=== PATIENT | female | born 2000 | race American Indian/Alaskan Native ===

== ENCOUNTER 2020-10-13 07:46 | Emergency (ER) | payer OTHER, BC ==
[2020-10-13] MEDS ORDERED: IBUPROFEN 800 MG TAB PO ONE (10:26)
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
[2020-10-13 12:47] VITALS: BP 132/54
== END 2020-10-13 13:02 | disposition home or self-care (01) ==
LOC: ED 07:46
DX: S06.0X9A Concussion with loss of consciousness of unspecified duration, initial encounter (principal); S16.1XXA Strain of muscle, fascia and tendon at neck level, initial encounter; S39.012A Strain of muscle, fascia and tendon of lower back, initial encounter; F17.200 Nicotine dependence, unspecified, uncomplicated; F12.10 Cannabis abuse, uncomplicated; Z90.89 Acquired absence of other organs; Z88.8 Allergy status to other drugs, medicaments and biological substances; V89.2XXA Person injured in unspecified motor-vehicle accident, traffic, initial encounter; Y93.89 Activity, other specified; Y92.410 Unspecified street and highway as the place of occurrence of the external cause; Y99.8 Other external cause status
CPT/HCPCS: 70450; 72100; 72125

== ENCOUNTER 2021-04-07 08:13 | Emergency (ER) | payer BC ==
[2021-04-07 08:46] VITALS: BP 145/91
[2021-04-07] MEDS ORDERED: LORazepam 1 MG TAB PO ONE (11:23)
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
[2021-04-07 12:44] LABS: Hematocrit 41.3 % (30.3-42.9); Hemoglobin 14.2 gm/dl (10.1-14.3); Mean Corpuscular HGB Conc 34 % (30-34); Mean Corpuscular Volume 93 fl (79-97); Platelet Count 261 K/mm3 (140-440); Red Blood Count 4.42 M/mm3 (3.65-5.03); Red Cell Distribution Width 14.4 % (13.2-15.2)
[2021-04-07 12:49] LABS: Amphetamine Screen,Urine Negative; Benzodiazepines Screen,Urine Negative; Cannabinoid Screen,Urine Negative; Cocaine Screen,Urine Negative; Methadone Screen,Urine Negative; Opiate Screen,Urine Negative
[2021-04-07 13:17] LABS: Alanine Aminotransferase 45 units/L (7-56); Albumin 5.6 g/dL (3.9-5); Blood Urea Nitrogen 8 mg/dL (7-17); Hemolysis Index 8
[2021-04-07 13:20] LABS: BUN/Creatinine Ratio 11
[2021-04-07 13:28] LABS: Anisocytosis 1+; Giant Platelets Rare; Large Platelets Few; Platelet Estimate Consistent w Auto; Total Cells Counted 100
[2021-04-07 13:30] LABS: Erythrocyte Sedimentation Rate 1 mm/Hr (0-20)
--- NOTE | 2021-04-07 16:36 | Vascular Lab Report ---
DUPLEX DOPPLER LOWER EXTREMITY VEINS, BILATERAL INDICATION / CLINICAL INFORMATION: Calf pain TECHNIQUE: Duplex doppler imaging was performed through the veins of both lower extremities using ranjeet ous compression and other maneuvers. COMPARISON: None available. FINDINGS: RIGHT COMMON FEMORAL VEIN: Negative. RIGHT FEMORAL VEIN: Negative. RIGHT POPLITEAL VEIN: Negative. RIGHT CALF VEINS: Negative. LEFT COMMON FEMORAL VEIN: Negative. LEFT FEMORAL VEIN: Negative. LEFT POPLITEAL VEIN: Negative. LEFT CALF VEINS: Negative. ADDITIONAL FINDINGS: None. IMPRESSION: No sonographic evidence for DVT in either lower extremity. Signer Name: Andrés Trent MD Signed: 04/07/2021 4:32 PM Workstation Name: [id number]
== END 2021-04-07 14:21 | disposition home or self-care (01) ==
LOC: ED 08:13
DX: M79.10 Myalgia, unspecified site (principal); F10.10 Alcohol abuse, uncomplicated; F17.200 Nicotine dependence, unspecified, uncomplicated; F12.10 Cannabis abuse, uncomplicated; Z90.89 Acquired absence of other organs; Z79.899 Other long term (current) drug therapy; Z88.8 Allergy status to other drugs, medicaments and biological substances
CPT/HCPCS: 36415; 80053; 80307; 80320; 83690; 83735; 84703; 85007; 85025; 85652; 93970; G0480